=== PATIENT | female | born 1960 | race African-American/Black ===

== ENCOUNTER 2018-01-05 10:37 | Emergency (ER) | payer OTHER, MEDICAID ==
[~2018-01-05] VITALS: Ht 165.1 cm; Wt 75.0 kg
[2018-01-05 17:40] VITALS: BP 154/74
== END 2018-01-05 17:42 | disposition home or self-care (01) ==
LOC: ER 11:43
DX: M54.5 Low back pain (principal); M54.2 Cervicalgia; I10 Essential (primary) hypertension; V89.2XXA Person injured in unspecified motor-vehicle accident, traffic, initial encounter; Y93.89 Activity, other specified; Y92.89 Other specified places as the place of occurrence of the external cause; Y99.8 Other external cause status
CPT/HCPCS: 72110; 99284